=== PATIENT | female | born 1940 | race Two or more races ===

== ENCOUNTER 2017-01-04 07:40 | Emergency (ER) | payer OTHER, MEDICAID ==
[~2017-01-04] VITALS: Ht 154.9 cm; Wt 51.3 kg
[~2017-01-04 07:40] MED LIST: ALPR0.5T7 PO; ATEN-60 PO; CARI-277; LOVA20TA4 PO
[2017-01-04 07:52] VITALS: BP 156/81
[2017-01-04] MEDS ORDERED: ALPRAZolam 0.5 MG TAB PO ONE (09:15)
== END 2017-01-04 09:21 | disposition home or self-care (01) ==
LOC: ER 07:48
DX: S93.401A Sprain of unspecified ligament of right ankle, initial encounter (principal); M19.90 Unspecified osteoarthritis, unspecified site; E78.5 Hyperlipidemia, unspecified; F17.210 Nicotine dependence, cigarettes, uncomplicated; F41.9 Anxiety disorder, unspecified; I10 Essential (primary) hypertension; Z88.6 Allergy status to analgesic agent; Z91.041 Radiographic dye allergy status; Z90.710 Acquired absence of both cervix and uterus; W01.0XXA Fall on same level from slipping, tripping and stumbling without subsequent striking against object, initial encounter; Y93.01 Activity, walking, marching and hiking; Y99.8 Other external cause status; Y92.098 Other place in other non-institutional residence as the place of occurrence of the external cause
CPT/HCPCS: 73630